=== PATIENT | male | born 1945 | race Caucasian/White ===

== ENCOUNTER → 2020-07-10 07:45 | Outpatient (CLI) | payer MEDICARE, OTHER, SELFPAY ==
[2020-06-27 10:44] VITALS: BMI 24.5
--- NOTE | 2020-07-10 07:48 | ECHOD_ITS ---
Reason For Study: MURMUR Procedure This was a 2D Doppler, Color Flow transthoracic echocardiogram. The exam was of adequate technical quality. Exam performed in department. Left Ventricle Normal LV size. Left ventricular systolic function is normal. The estimated ejection fraction is 65 %. Diastolic function is indeterminate. No regional wall motion abnormalities noted. Right Ventricle Normal RV size. Normal systolic function. Atria Normal left atrium. Normal right atrium. No doppler evidence for ASD. Mitral Valve There is no mitral annular calcification. Normal mitral valve. Trivial mitral valve insufficiency. Tricuspid Valve Normal tricuspid valve. Trivial tricuspid valve insufficiency. Unable to estimate RV systolic pressure due to insufficient tricuspid regurgitant envelope. Aortic Valve Trisinus/trileaflet aortic valve. Mild diffuse aortic valve thickening. Mild focal aortic valve calcification. Moderate aortic stenosis. Trivial aortic valve insufficiency. Pulmonic Valve The pulmonic valve is not well visualized. Great Vessels Normal sized aortic root. Pericardium/Pleural No pericardial effusion. MMode/2D Measurements & Calculations LVIDd: 4.9 cm IVSd: 1.5 cm LVOT diam: 2.1 cm LVIDs: 3.2 cm LVPWd: 1.0 cm LVOT area: 3.4 cm2 RVDd: 3.4 cm FS: 34.5 % Ao root diam: 3.1 cm LAV(MOD-bp): 61.2 ml LA A4 area: 17.7 cm2 LAV(MOD-bp) Indexed: 34.6 ml/m2 LAV(MOD-sp2): 74.9 ml LAV(MOD-sp4): 46.9 ml LA dimension(2D): 4.0 cm RA A4 area: 13.6 cm2 Time Measurements MV dec time: 0.18 sec Doppler Measurements & Calculations MV E max nghia: 98.0 cm/sec Lat Peak E' Nghia: 7.9 cm/sec Med Peak E' Nghia: 7.7 cm/sec MV A max nghia: 106.3 cm/sec E/E' lat: 12.4 E/E' med: 12.8 MV E/A: 0.92 Ao V2 max: 339.9 cm/sec LV V1 max: 123.6 cm/sec SV(LVOT): 93.9 ml Ao max P.3 mmHg LV V1 max P.1 mmHg Ao V2 mean: 243.5 cm/sec LV V1 mean P.2 mmHg Ao mean P.2 mmHg LV V1 mean: 84.3 cm/sec Ao V2 VTI: 74.2 cm LV V1 VTI: 27.7 cm ADIEL(I,D): 1.3 cm2 ADIEL(V,D): 1.2 cm2 PA V2 max: 92.8 cm/sec Interpretation Summary Left ventricular systolic function is normal. The estimated ejection fraction is 65 %. Trivial mitral valve insufficiency. Trivial tricuspid valve insufficiency. Moderate aortic stenosis. Trivial aortic valve insufficiency. Unable to estimate RV systolic pressure due to insufficient tricuspid regurgitant envelope. Diastolic function is indeterminate. Ordering Physician: Issac Wyman Referring Physician: Steffen Triplett Performed By: Suasn Palmer RVT, RDCS and Student
== END ==
PROVIDERS: PCP Family Medicine; Visit Provider Internal Medicine Cardiovascular Disease
DX: I35.0 Nonrheumatic aortic (valve) stenosis (principal)
CPT/HCPCS: 93306

== ENCOUNTER → 2021-09-24 | Outpatient (CLI) | payer MEDICARE, OTHER, SELFPAY ==
--- NOTE | 2021-09-24 09:47 | ECHOD_ITS ---
Reason For Study: Murmur Procedure This was a 2D Doppler, Color Flow transthoracic echocardiogram. Exam performed in department. Left Ventricle Normal LV size. Left ventricular systolic function is normal. The estimated ejection fraction is 65 %. Diastolic function is indeterminate. No regional wall motion abnormalities noted. Right Ventricle Normal RV size. Normal systolic function. Atria Normal left atrium. Normal right atrium. No doppler evidence for ASD. Mitral Valve There is no mitral annular calcification. Normal mitral valve. Mild (1+) mitral valve insufficiency. Tricuspid Valve Normal tricuspid valve. Trivial tricuspid valve insufficiency. Unable to estimate RV systolic pressure due to insufficient tricuspid regurgitant envelope. Aortic Valve Trisinus/trileaflet aortic valve. Mild diffuse aortic valve thickening. Moderate diffuse aortic valve calcification. Moderate to severe aortic valve stenosis. Trivial aortic valve insufficiency. Pulmonic Valve The pulmonic valve is not well visualized. Trivial pulmonic valve insufficiency. Great Vessels Normal sized aortic root. Pericardium/Pleural No pericardial effusion. MMode/2D Measurements & Calculations LVIDd: 4.5 cm IVSd: 1.1 cm LVOT diam: 2.0 cm LVIDs: 2.7 cm LVPWd: 1.1 cm LVOT area: 3.2 cm2 RVDd: 3.4 cm FS: 40.0 % Ao root diam: 3.0 cm LAV(MOD-bp): 58.9 ml Aortic Valve Planimetry: 0.84 cm2 LA dimension: 3.9 cm LAV(MOD-bp) Indexed: 32.4 ml/m2 LAV(MOD-sp2): 53.4 ml LAV(MOD-sp4): 58.9 ml LA A4 area: 20.2 cm2 RA A4 area: 15.6 cm2 Time Measurements MV dec time: 0.22 sec Doppler Measurements & Calculations MV E max nghia: 79.3 cm/sec Lat Peak E' Nghia: 6.4 cm/sec Med Peak E' Nghia: 6.6 cm/sec MV A max nghia: 112.9 cm/sec E/E' lat: 12.4 E/E' med: 11.9 MV E/A: 0.70 MV V2 max: 112.6 cm/sec MV P1/2t max nghia: 94.5 cm/sec Ao V2 max: 352.1 cm/sec MV max P.1 mmHg MV P1/2t: 60.0 msec Ao max P.8 mmHg MV V2 mean: 58.5 cm/sec MV dec slope: 461.2 cm/sec2 Ao V2 mean: 254.7 cm/sec MV mean P.6 mmHg Ao mean P.2 mmHg MV V2 VTI: 30.5 cm MVA(P1/2t): 3.7 cm2 Ao V2 VTI: 80.7 cm MVA(VTI): 2.4 cm2 ADIEL(I,D): 0.90 cm2 ADIEL(V,D): 0.85 cm2 AI max nghia: 353.1 cm/sec LV V1 max: 92.6 cm/sec SV(LVOT): 72.3 ml AI max P.9 mmHg LV V1 max P.4 mmHg LV V1 mean P.0 mmHg AI dec slope: 149.3 cm/sec2 LV V1 mean: 67.2 cm/sec AI P1/2t: 692.5 msec LV V1 VTI: 22.5 cm PA V2 max: 103.0 cm/sec ECHO/Echo Complete Interpretation Summary Left ventricular systolic function is normal. The estimated ejection fraction is 65 %. Mild (1+) mitral valve insufficiency. Trivial tricuspid valve insufficiency. Moderate to severe aortic valve stenosis. Trivial aortic valve insufficiency. Trivial pulmonic valve insufficiency. Unable to estimate RV systolic pressure due to insufficient tricuspid regurgita nt envelope. Diastolic function is indeterminate. Ordering Physician: Hayde Thompson Referring Physician: Steffen Triplett Performed By: Jamir Kothari RCS
== END | disposition home or self-care (01) ==
LOC: CVS 09:47
PROVIDERS: PCP Family Medicine; Referring Provider Physician Assistant Medical; Visit Provider Physician Assistant Medical
DX: I35.0 Nonrheumatic aortic (valve) stenosis (principal)
CPT/HCPCS: 93306

== ENCOUNTER 2021-10-29 08:19 | Day surgery (SDC) | payer MEDICARE, OTHER, SELFPAY ==
--- NOTE | 2021-10-23 14:41 | RAD_ITS ---
STUDY: XR Chest 2 Views 10/23/2021 2:47 PM REASON FOR EXAM: Male, 76 years old. CHEST PAIN pre-procedure COMPARISON: None TECHNIQUE: XR Chest 2 Views FINDINGS: There is no demonstrated pleural abnormality. Normal heart size. Normal mediastinum. Normal justa. Prominent appearing increased interstitial lung markings. Normal visualized pulmonary arteries. There is atherosclerotic calcification of the aortic arch with tortuosity. There are diffuse degenerative changes of the visualized thoracic spine. There is degenerative osteoarthritis of the bilateral shoulders. There is no demonstrated abnormality of the visualized soft tissue structures of the upper abdomen. RAD/Chest PA and Lateral IMPRESSION: There are no acute findings. Electronically Signed: Ar Sultana MD at 16:55 EDT ,
[2021-10-23 15:22] LABS: Absolute Lymphocyte Count 1.99 X10^3/uL (0.83-4.51); Absolute Neutrophil Count 5.9 X10^3/uL (2.0-7.7); Basophil# 0.04 X10^3/uL; Basophil% 0.5 % (0-1); Eosinophils% 1.2 % (0-5); Hematocrit 41.9 % (40-54); Hemoglobin 14.1 g/dL (13.0-16.5); Lymphocyte # 1.99 X10^3/ul (0.83-4.51); Mean Corp Hgb Conc 33.7 g/dL (32-36); Mean Corpuscular Hgb 30.2 pg (27.0-32.0); Mean Corpuscular Volume 89.7 fL (80-94); Mean Platelet Vol. 9.5 fl (6.2-12.0); Monocyte# 0.63 X10^3/uL; Monocyte% 7.3 % (0-10); NRBC Flagged by Analyzer 0 % (0-5); Neutrophil # 5.85 X10^3/uL (2.7-7.7); Neutrophil % 67.7 % (47-70); Platelet Count 242 K/mm3 (150-450); RBC Distribution Width CV 13.2 % (11.6-14.6); RBC Distribution Width SD 42.9 fl (35.1-43.9); Red Blood Count 4.67 M/mm3 (4.6-6.2); White Blood Count 8.6 K/mm3 (4.4-11.0)
[2021-10-23 15:38] LABS: International Normalized Ratio 1.1; Prothrombin Time (Protime)PT. 13.5 SECONDS (11.7-14.9)
[2021-10-23 15:39] LABS: Partial Thromboplast Time 28.3 Seconds (24.1-36.2)
[2021-10-23 15:51] LABS: Anion Gap 9 (5-15); BUN 19 mg/dL (7-18); BUN/Creat Ratio 22.5 RATIO (10-20); Calcium,Total 9.8 mg/dL (8.5-10.1); Chloride 101 mmol/L (98-107); Creatinine, Serum 0.84 mg/dL (0.70-1.30); EST Glomerular Filtration Rate 94 mL/min (>60); Est Glom Filt Rate - Afr Amer 114 mL/min (>60); Glucose 158 mg/dL (74-106); Potassium 3.4 mmol/L (3.5-5.1); Sodium Level 138 mmol/L (136-145)
[2021-10-28 07:48] VITALS: BMI 26.4
--- NOTE | 2021-10-28 18:19 | HP.PCM_ITS ---
History and Physical Date of Admission: 10/29/21 [facility] [address], [place] [phone] OFFICE VISITDate of Service: 10/23/21 MR#:[id number]:[id number]: JAIMEE BRIAN [facility] #:[id number]:[id number] Provider: LESLIE Hebert/Sex: 76/M [facility] HPI History of Present Illness Surgical H&P: Yes Details: Jaimee Brian is a 76-year-old gentleman that presents here today for An updated history and physical for an upcoming heart catheterization to further evaluate his worsening aortic stenosis. He has a history of aortic stenosis, hypertension and hyperlipidemia. Patient recently underwent an echocardiogram which demonstrated worsening aortic stenosis. It is now severe. Pt notes that over the last month he noted that he has had chest tightness when he is mowing his yard and taking walks. He did not have these symptoms when I had seen him in May. He notes that sometimes he has tightening at work in his chest, this is newer over the last few weeks. This resolves in 10-15 minutes. It is a 2-5/10. notes that she was concerned about his tightness a few weeks ago with a walk. He does occasionally have lightheadedness- this is newer. He notes that he is more easily SOB. He does not have any palpitations that he is aware of. Intake Vital Signs 10/23/21 13:31 Height 5 ft 6 in Weight: 164 lb BMI 26.4 BP 133/74 H Blood Pressure Location Lt brachial Position Sitting Respiration 20 H Pulse 61 Pulse Source Monitor Pulse Oximetry (%) 97 Intake Visit Reasons: UPDATE H&P PFM CATH 10/29 Housekeeping Aid Required: No Is patient in pain?: No Allergies adhesive tape Allergy (Verified 05/27/21 15:30) Rash aspirin Adverse Reaction (Severe, Verified 05/27/21 15:30) Nose bleeds Medications omega-3 fatty acids-fish oil 1 ea PO QHS 02/25/17 [History Confirmed 10/23/21] coenzyme Q10 100 mg capsule 100 mg PO DAILY 05/04/19 [History Confirmed 10/23/21] hydrochlorothiazide 12.5 mg tablet 12.5 mg PO DAILY 05/04/19 [History Confirmed 10/23/21] cholecalciferol (vitamin D3) 25 mcg (1,000 unit) capsule 25 mcg PO DAILY 06/27/20 [History Confirmed 10/23/21] insulin detemir U-100 100 unit/mL (3 mL) subcutaneous pen 13 unit SC QHS ml 06/27/20 [History Confirmed 10/23/21] ezetimibe 10 mg tablet 10 mg PO DAILY 01/22/21 [History Confirmed 10/23/21] atorvastatin 80 mg tablet 80 mg PO DAILY 10/23/21 [History Confirmed 10/23/21] metformin 500 mg tablet 500 mg PO BID tab 10/23/21 [History Confirmed 10/23/21] [facility] Medical History Essential hypertension Fatty tumor GERD (gastroesophageal reflux disease) HSV-1 (herpes simplex virus 1) infection Mixed hyperlipidemia Nonrheumatic aortic (valve) stenosis Type 2 diabetes mellitus Surgical History History of inguinal hernia repair Family History Mother Myocardial infarction, Onset Age: 48 Father CVA (cerebral vascular accident) Brother CAD (coronary artery disease) History of coronary artery bypass surgery Brother CAD (coronary artery disease) History of coronary artery bypass surgery Social History Smoking Status: Never smoker alcohol intake: current details: occasional substance use type: does not use caffeine: Yes Type: coffee Number of servings: 1 and tea Number of servings: 1 ROS Const Const: Positive for fatigue; Negative for weakness, headache(s), frequent falls, excessive sweating, weight gain or weight loss Eyes Eyes: Negative for blind spots, loss of peripheral vision, transient loss of vision, blurry vision, change in vision or double vision ENT ENT: Negative for headache(s), dizziness, tinnitus, Nosebleed/epistaxis or balance problems Cardio Chest Pain: Yes Palpitations: No Edema: None Muscle aches with walking: None Resp Respiratory: Positive for SOB with activity; Negative for SOB at rest, SOB orthopnea\SOB lying down or Cough GI GI: Negative nausea, vomiting, heartburn, bloating, vomiting blood/hematemesis, bright, red blood in stools or black,tarry stools : Negative for hematuria Musc Musc: Negative for muscle aches/ myalgia, muscle weakness, joint pain or balance problems Skin Skin: Negative rash or wounds Neuro Neuro: Negative for dizziness, lightheadedness, near syncope, syncope, orthostatic symptoms, frequent falls, headache(s), weakness, confusion, memory loss, restless legs, blurry vision or double vision Jeremías Hematologic/Lymphatic: Negative for easy bleeding or easy bruising Endo Endo: Positive for fatigue; Negative for cold intolerance, heat intolerance or excessive sweating Psych Psych: Negative for anxiety or depression Allergy Allergy/Immunology: Negative for rash Cardiology Exam Const Appearance: cooperative, healthy appearing, comfortable, no acute distress and well developed Orientation: alert, awake and oriented x3 Head Head: normal to inspection Ears: hearing grossly normal bilaterally Nose: external nose normal Face and Sinus: face symmetric Mouth: oral mucosae normal, lip normal and moist mucous membranes Eyes General: appearance normal, both eyes and all related structures Eyelids: eyelids normal Conjunctivae: conjunctivae normal Pupils: PERRL EOM: EOM intact bilaterally Neck Neck: normal visual inspection and trachea midline; Negative no JVD Carotids: Negative bruit Chest Chest inspection: normal inspection of the chest Auscultation: Bilateral: Clear to Auscultation Cardio Palpation: normal PMI Rate: regular rate Rhythm: regular rhythm Heart sounds: S1 normal, S2 normal and murmur; Negative rub or gallop Murmur: Grade 3/6, harsh, mid systolic and radiates to carotids GI GI: soft, no hepatosplenomegaly and bowel sounds present Neuro General: patient alert, patient awake, patient oriented x3 and CN's II-XI intact bilaterally Extremities Pulses: Normal: Right Posterior Tibial Pulse, Left Posterior Tibial Pulse, Right Radial Pulse and Left Radial Pulse Lower Extremity Edema: None: Bilateral Psych Psychological: normal affect Supplemental Info Supplemental Information Echocardiogram from 10/21/2018: Conclusion: ?Exam indication: Routine surveillance of moderate or severe valvular stenosis (greater than 1 year) ?The left ventricle is normal in size. Systolic function is normal. EF equals 67 ?5% (2D 4?CH.) Grade 1 left ventricular diastolic dysfunction. ?The right ventricle is normal in size. Right ventricular systolic function is normal. ?Tricuspid aortic valve. There is moderate aortic valve stenosis caused by calcified valve. ADIEL area is 1.16 cm? (0.64 cm?/m?) by continuity, VTI. The peak gradient is 37 mmHg, the mean gradient is 21 mmHg and the dimensionless valve index is 0.42. Prior aortic valve gradients 37/17 mmHg DI 49. ?Exam was compared with prior CT echocardiographic exam performed on 10/16/2017. Echocardiogram 06/2020: Left ventricular systolic function is normal. The estimated ejection fraction is 65 %. Trivial mitral valve insufficiency. Trivial tricuspid valve insufficiency. Moderate aortic stenosis. Trivial aortic valve insufficiency. Unable to estimate RV systolic pressure due to insufficient tricuspid regurgitant envelope. Diastolic function is indeterminate. Echocardiogram 09/2021: Left ventricular systolic function is normal. The estimated ejection fraction is 65 %. Mild (1+) mitral valve insufficiency. Trivial tricuspid valve insufficiency. Moderate to severe aortic valve stenosis. Trivial aortic valve insufficiency. Trivial pulmonic valve insufficiency. Unable to estimate RV systolic pressure due to insufficient tricuspid regurgitant envelope. Diastolic function is indeterminate. Labs: LDL Cholesterol 138 mg/dL (0-130) H HDL Cholesterol 39 mg/dL (40-) L Triglycerides 116 mg/dL (0-199) VLDL Cholesterol 23 mg/dL (5-40) Diagnostics: Electrocardiogram Echocardiogram Pulmonary: No Data to Display Assessment and Plan Assessment and Plan (1) Chest pain: Status: Acute Orders: Orders: 12 Lead EKG performed by BMS Today Basic Metabolic Profile (BMP) Today Partial Thromboplast Time Today Prothrombin Time w/INR Today CBC W/Diff, Automated Today Chest PA and Lateral Today Plan - Hayde NELSON PA: Patient now does have chest discomfort. This could be concerning for could also be due to his worsening aortic stenosis. Would like to proceed with a diagnostic heart catheterization to further assess. Patient is agreeable with this. This will be done with Dr. Wyman (2) Nonrheumatic aortic (valve) stenosis: Status: Chronic Orders: Orders: Basic Metabolic Profile (BMP) Today Partial Thromboplast Time Today Prothrombin Time w/INR Today CBC W/Diff, Automated Today Chest PA and Lateral Today Plan - Hayde NELSON PA: Echocardiogram demonstrated worsening aortic valve stenosis. Patient now does appear symptomatic. Would like to obtain a diagnostic heart catheterization to further assess this will allow us to evaluate if his valve is significant enough to be referred for CT surgery. (3) Essential hypertension: Status: Chronic Orders: Orders: 12 Lead EKG performed by BMS Today CBC W/Diff, Automated Today Plan - Hayde NELSON PA: Controlled will not make any adjustments. (4) Mixed hyperlipidemia: Status: Chronic Plan - Hayde NELSON PA: This is managed by his primary care doctor. He will continue with Zetia. Recent lipid profile demonstrates total cholesterol 128, HDL 47, LDL 74. Plan Details Follow Up: 10/23/21 (3 months MMM- cancel appt 11/01 with PFM) Coding Level of Care Code Off vis,est,level 4 Diagnoses Chest pain R07.9 Nonrheumatic aortic (valve) stenosis I35.0 Essential hypertension I10 Mixed hyperlipidemia E78.2 Coding Level of Care Code Off vis,est,level 4 Diagnoses Chest pain R07.9 Nonrheumatic aortic (valve) stenosis I35.0 Essential hypertension I10 Mixed hyperlipidemia E78.2 10/23/21 1414<Electronically signed by Hayde NELSON>Date Hayde NELSON Cosigner Signature:Date (if applicable) CC: Dr. Steffen Triplett MD ~ Assessment & Plan Addt'l Comments I have re-examined the patient. There are no clinical changes since date of exam
[2021-10-29 10:36] LABS: Blood Gas Specimen Type VEN; VBG BASE EXCESS 3 mmol/L (-1.0-3.5); VBG Bicarbonate 27 mmol/L (22-26); VBG PO2 51 mmHg (25-40); VBG SO2 87 % (50-70); VBG TCO2 28 mmol/L (23-33); VBG pH 7.46 (7.32-7.42)
[2021-10-29 10:41] LABS: Blood Gas Specimen Type VEN; VBG BASE EXCESS 2 mmol/L (-1.0-3.5); VBG Bicarbonate 26 mmol/L (22-26); VBG PO2 40 mmHg (25-40); VBG SO2 75 % (50-70); VBG TCO2 28 mmol/L (23-33); VBG pCO2 41.9 mmHg (41-51); VBG pH 7.41 (7.32-7.42)
[2021-10-29 10:46] LABS: Base Excess 1 mmol/L (-2 to +2); Bicarbonate 25.8 mmol/L (22-26); Blood Gas Specimen Type ART; PO2 63 mmHG (75-100); SO2 92 % (95-99); Total Carbon Dioxide 27 mmol/L; pCO2 39.1 mmHg (35-45); pH 7.43 (7.35-7.45)
[2021-10-29 10:50] LABS: Blood Gas Specimen Type VEN; VBG BASE EXCESS 2 mmol/L (-1.0-3.5); VBG Bicarbonate 27 mmol/L (22-26); VBG PO2 40 mmHg (25-40); VBG SO2 75 % (50-70); VBG TCO2 28 mmol/L (23-33); VBG pH 7.41 (7.32-7.42)
--- NOTE | 2021-10-29 12:05 | CL.D_ITS ---
Patient Name: DORIS CARL Study Date: 10/29/2021 Performing: Issac Wyman MD Ht: 66.14 inches 168 cm : 1945 Wt: 163.14 lbs 74 kg Age: 76 Gender: male BSA: 1.84 PROCEDURE(S) PERFORMED DC05-(37852)RHC/LHC/COR/LV CLINICAL PROFILE AND INDICATIONS Indications: Worsening Angina, Valvular Disease, Other, Pre-Operative Evaluation Heart Failure: None Stress/Imaging Stress/Image Study Performed: No Angina Classification Anginal Classification w/in 2 Weeks: Anginal Equivalent Dyspnea CAD Presentations: Other: worsening angina / dyspnea on exertion CONCLUSIONS Right heart pressures - mildly elevated RVSP The patient has pulmonary hypertension which is mild. (mild elevation of the PASP) Intracardiac shunting: None Normal Left Ventricular End Diastolic Pressure Normal LV size, wall motion,and systolic function LVEF: by LV gram 60 % [place] Multivessel CAD Aortic Valve Calcification- Moderate Aortic Valve Stenosis- Moderately severe RECOMMENDATIONS Risk factor modification Medical therapy Surgery consult for coronary revascularization Surgery consult for valvular disease DESCRIPTION OF PROCEDURE The patient arrived to the procedure lab. The risks and benefits of the procedure as well as a full d escription of our services here and current unavailability of surgical backup were fully explained to the patient and/or their significant other prior to the catheterization. The Timeout was completed, verifying the correct patient and procedure. The patient's procedural site was prepped and draped in the usual fashion. Local anesthetic was given subcutaneously to right radial region with Lidocaine 2% . Using a modified Seldinger technique, arterial access was obtained via the right radial artery, a 6 Fr sheath was inserted. Venous access was obtained via the right brachiocephalic vein, a 7Fr sheath w as inserted. A 7Fr thermal dilution catheter was inserted and right heart pressures were recorded, it was then advanced to PA position for cardiac outputs. Thermal dilution cardiac outputs were then rec orded. O2 saturations were then obtained. Right Ventriculography performed. The Thermal dilution catheter was then removed. Left Coronary Artery selective angiography was performed in multi ple views using a 5 Fr. 4.0 Hubbard catheter. Right Coronary Artery selective angiography was then perf ormed in multiple views using a 5 Fr. JR 4 catheter.The arterial sheath was pulled and a TR Band was applied for hemostasis w/ 10ml air. The venous sheath was then pulled and manual compression applied until hemostasis achieved CORONARY ANGIOGRAPHY DOMINANCE: Left Dominant LEFT HEART ASSESSMENT Left Ventricular Ejection Fraction: by LV Gram 60 % Normal LV wall motion Normal Left Ventricular End Diastolic Pressure LVEDP: 12 mmHg RIGHT HEART ASSESSMENT Thermal CO: 4.37 Thermal CI: 2.37 Namita CO: 25.52 Namita CI: 13.87 PW: 02/28 6 PA: 32/6 16 RV: 30/-1 8 RA: 11/24 2 PVR: 183 SVR: 1574 Aortic Valve Area: 0.89 Aortic Valve Index: 0.48 Aortic Valve Mean Gradient: 33.4 Mitral Valve Area: >3.50 Mitral Valve index: 1.9 Mitral Valve Mean Gradient: 11.8 Right Heart pressures - elevated (mild elevation of the RVSP) Pulmonary Hypertension Mild (mild elevation of the PASP) Intracardiac shunting: None LEFT MAIN: Moderate calcification, Mild luminal irregularities LEFT ANTERIOR DESCENDING ARTERY: PROX LAD: Moderate calcification, diffuse; eccentric; 25 % Stenosis MID LAD: diffuse; irregular; hazy; 85 % Stenosis CIRCUMFLEX ARTERY: MID CIRC: diffuse; irregular; hazy; 85 % Stenosis RIGHT CORONARY ARTERY: PROX RCA: small: non dominant: 50-75 % Stenosis VALVE FINDINGS: Aortic Valve Calcification - moderate Aortic Valve Stenosis - moderately severe AORTIC ROOT: Angiographically normal COMPLICATIONS No Complications PROCEDURE MEDICATIONS Versed 1 mg IV Fentanyl 50 mcg IV Oxygen: 2 L/min via nasal cannula Heparin given IA 10/29/2021 10:38:12 Verapamil 2.5mg, Ntg 100mcgs, 3000 units of Heparin given IA 10/29/2021 10:38:12 SUMMARY OF HEMODYNAMIC DATA Time AIR REST ECG 08:36:33 RA 11/24 (2) SV 10:32:33 RV 30/-1, 8 10:32:51 PA 32/6 (16) PA 10:33:09 PW 02/28 (6) PV 10:33:21 LV 165/-14, 10 10:42:37 PW 11/26 (5) 10:42:37 LV 163/-12, 9 10:42:44 PW 11/26 (5) 10:42:44 LV 162/-8, 18 10:44:09 PW (14) 10:44:09 LV 163/-9, 16 10:44:16 PW 19/12 (6) 10:44:16 LV 157/-9, 13 10:44:55 PA 24/9 (15) 10:44:55 LV 160/-9, 12 10:45:02 PA 23/8 (15) 10:45:02 LV 160/-9, 15 10:45:31 RV 31/0, 10 10:45:31 LV 158/-8, 13 10:45:37 RV 30/0, 10 10:45:37 LV 161/-8, 15 10:45:56 RA 8/4 (3) 10:45:56 LV 162/-8, 13 10:46:03 RA 8/4 (2) 10:46:03 LV 160/-9, 15 10:46:16 LV 161/-8, 15 10:46:23 LVp 163/-8, 15 10:46:35 AOp 118/58 (84) 10:46:40 AO 121/64 (88) SA 10:46:55 Valve Area (c P-P/ms Time AIR REST Mitral 3.50 11.8 mn/120 ms 10:42:44 Aortic 0.89 33.4 mn/306 ms45.0 pk/306 ms 10:46:35 Type SV CO (l/m) CI (l/m/ HR Time AIR REST Thermal 56.80 4.37 2.37 77 08:36:33 Namita 331.40 25.52 13.87 77 08:36:33 Label % O2 Pres/Loc Time AIR REST PA 75 PA 10:39:04 SVC 75 10:49:09 IVC 87 SV 10:49:29 AO 92 PV 10:49:41 Signed By Issac Wyman MD On 10/29/2021 12:04:40 Issac Wyman MD
[2021-10-29 12:15] LABS: Bedside Glucose 95 mg/dL (74-106)
== END 2021-10-29 14:15 | disposition home or self-care (01) ==
LOC: CLSP 08:20
PROVIDERS: Physician Assistant Medical; PCP Family Medicine; Referring Provider Internal Medicine Cardiovascular Disease; Visit Provider Internal Medicine Cardiovascular Disease
DX: I25.10 Atherosclerotic heart disease of native coronary artery without angina pectoris (principal); I27.20 Pulmonary hypertension, unspecified; E11.9 Type 2 diabetes mellitus without complications; Z79.4 Long term (current) use of insulin; I10 Essential (primary) hypertension; K21.9 Gastro-esophageal reflux disease without esophagitis; E78.2 Mixed hyperlipidemia; I35.0 Nonrheumatic aortic (valve) stenosis; Z79.899 Other long term (current) drug therapy; R07.89 Other chest pain
CPT/HCPCS: 36415; 71046; 80048; 82803; 82962; 84132; 85025; 85610; 85730; 93461; 99152; 99153; J7030; Q9967; C1751; C1769; C1894

== ENCOUNTER → 2021-10-31 | Outpatient (CLI) | payer MEDICARE, OTHER, SELFPAY ==
[2021-10-31 12:20] LABS: Anion Gap 5 (5-15); BUN 15 mg/dL (7-18); BUN/Creat Ratio 16.9 RATIO (10-20); Calcium,Total 9.3 mg/dL (8.5-10.1); Chloride 101 mmol/L (98-107); Creatinine, Serum 0.89 mg/dL (0.70-1.30); EST Glomerular Filtration Rate 89 mL/min (>60); Est Glom Filt Rate - Afr Amer 107 mL/min (>60); Glucose 167 mg/dL (74-106); Sodium Level 137 mmol/L (136-145)
== END | disposition home or self-care (01) ==
LOC: LAB 10:49
PROVIDERS: PCP Family Medicine; Referring Provider Internal Medicine Cardiovascular Disease; Visit Provider Internal Medicine Cardiovascular Disease
DX: I25.10 Atherosclerotic heart disease of native coronary artery without angina pectoris (principal); E78.2 Mixed hyperlipidemia; I10 Essential (primary) hypertension; I35.0 Nonrheumatic aortic (valve) stenosis
CPT/HCPCS: 36415; 80048

== ENCOUNTER → 2022-01-10 | Outpatient (CLI) | payer MEDICARE, OTHER, SELFPAY ==
[2022-01-10 11:59] LABS: Anion Gap 5 (5-15); BUN 18 mg/dL (7-18); BUN/Creat Ratio 21.5 RATIO (10-20); Calcium,Total 9.5 mg/dL (8.5-10.1); Chloride 102 mmol/L (98-107); Creatinine, Serum 0.84 mg/dL (0.70-1.30); EST Glomerular Filtration Rate 95 mL/min (>60); Est Glom Filt Rate - Afr Amer 115 mL/min (>60); Glucose 154 mg/dL (74-106); Potassium 3.9 mmol/L (3.5-5.1); Sodium Level 137 mmol/L (136-145)
== END | disposition home or self-care (01) ==
LOC: LAB 10:36
PROVIDERS: PCP Family Medicine; Referring Provider Internal Medicine Cardiovascular Disease; Visit Provider Internal Medicine Cardiovascular Disease
DX: I25.10 Atherosclerotic heart disease of native coronary artery without angina pectoris (principal); Z95.3 Presence of xenogenic heart valve; Z95.1 Presence of aortocoronary bypass graft; E78.2 Mixed hyperlipidemia; I10 Essential (primary) hypertension
CPT/HCPCS: 36415; 80048

== ENCOUNTER → 2022-01-15 | Outpatient (CLI) | payer MEDICARE, OTHER, SELFPAY ==
--- NOTE | 2022-01-15 08:03 | CR.HP_ITS ---
CR - History & Physical - General Arrival date:: 01/15/22 Arrival time:: 08:03 Date of Referral:: 01/10/22 Date of CR Evaluation:: 01/15/22 Referring Physician: Dr. Issac Wyman Primary Diagnosis: S/P CABG - History of Present Cardiac Event Onset Date: Enter Onset Date of cardiac illnesses in Comment field below Coronary Artery Bypass Graft:: Yes - 01/10/2022 - Sleep Disorder Evaluation Hx of Sleep Apnea: No Do you snore loudly (louder than talking or can be heard through closed doors)?: No Do you often feel tired/ fatigued/ sleepy during daytime?: No Has anyone observed you stop breathing during sleep?: No History of Hypertension (for STOP score): Yes STOP Results: Negative - Medications Home Medications: Ambulatory Orders Medication Instructions Recorded coenzyme Q10 100 mg capsule 100 mg PO DAILY 05/04/19 cholecalciferol (vitamin D3) 25 25 mcg PO DAILY 06/27/20 mcg (1,000 unit) capsule ezetimibe 10 mg tablet (Zetia) 10 mg PO DAILY 01/22/21 atorvastatin 80 mg tablet 80 mg PO DAILY 10/23/21 metoprolol tartrate 25 mg tablet 12.5 mg PO BID #90 tabs 10/29/21 acetaminophen 325 mg tablet 650 mg PO Q6H PRN 12/17/21 insulin degludec 100 unit/mL (3 14 unit subcut DAILY 12/17/21 mL) subcutaneous pen (Tresiba FlexTouch U-100 insulin) melatonin 3 mg tablet 3 mg PO HS PRN 12/17/21 metformin 500 mg tablet,extended 500 mg PO DAILY 12/17/21 release 24 hr multivitamin 1 tab PO DAILY 12/17/21 polyethylene glycol 3350 17 gram 17 g PO BID PRN constipation 12/17/21 oral powder packet (Miralax) tamsulosin 0.4 mg capsule 0.4 mg PO DAILY 12/17/21 aspirin 325 mg tablet 81 mg PO DAILY 01/10/22 hydrochlorothiazide 12.5 mg capsule 12.5 mg PO DAILY 01/10/22 - Allergies Allergies/Adverse Reactions: Allergies adhesive tape Allergy (Verified 01/10/22 09:48) Rash aspirin Adverse Reaction (Severe, Verified 01/10/22 09:48) Nose bleeds Advanced Directives - Advanced Directives Power of Dental Office Receptionist: Yes Living Will: Yes Advance Directives Information Provided: Yes Advance Directives on File: No DNR Order?:: No Past Medical History - Covid-19 Screening Fever: No Unexplained muscle aches: No Current respiratory symptoms: No Upper respiratory infections symptoms: No Gastro-intestinal symptoms: No Uhe-Uhsr-Hjqkou symptoms: No Has tested positive for COVID-19 in last 30 days: No Had contact w/person w/symptoms or Covid-19 (+) last 14 days: No Has High Risk Exposures ID'd by Health dept/Inf Control team: No 65 years or older:: Yes Lives in Assisted Living facility:: No Has a chronic lung disease or moderate to severe asthma:: No Has a serious heart condition:: Yes Immunocompromised:: No Severely obese (Body Mass Index of 40 or higher):: No Diabetic:: Yes Has chronic kidney disease undergoing dialysis:: No Has liver disease:: No - Past Medical Illness Medical History: Past Medical History (Last Updated 10/29/21 @ 13:05 by Hayde Means) Atherosclerotic heart disease of [place] coronary artery without angina pectoris I25.10 Essential hypertension 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 [facility] Trifecta valve Dr. Montiel @ [facility] 12/09/21 History of coronary artery bypass surgery Onset Date: ~12/09/21 Z95.1 CABG x2- PASTRANA - LAD, SVG - CX; Lt atrial appendage ligation; aortic root enlargement with a Bovine pericardial patch Dr. Montiel @ [facility] 12/09 22 History of inguinal hernia repair Z98.890, Z87.19 - Family History Summary Family History: Family History (Last Reviewed 10/23/21 @ 13:58 by Hayde Thompson PA, PA) Mother Myocardial infarction, Onset Age: 48 Father CVA (cerebral vascular accident) Brother CAD (coronary artery disease) History of coronary artery bypass surgery Brother CAD (coronary artery disease) History of coronary artery bypass surgery Social History - Smoking History Smoking Status: Never smoker - Alcohol Use Alcohol Usage: Yes - occasional - Substance Abuse Hx Substance Use: No - Occupation Occupation (List type of work in comments):: Retired - Hobbies, Recreation, Social Activities Hobbies: Other - hunting Recreational Activities: I am able to engage in all my recreational activities Social Environment - Status Marital Status: - Current Living Arrangements Living Environment:: Spouse - Children How many children do you have?: 3 Do any of your children live nearby?: Yes - Safety Do you feel safe in your surroundings?: Yes - Assistance Do you need any assistance at home?: no Review of Systems - Review of Systems Hints: Right click = Denies ([place]). Left click = Reports ([place]) Review of Present Symptoms: Reports: Appetite - Normal, Sleep - Normal. Denies: Shortness of Breath at Rest, Shortness of Breath with Exertion, PVD, Operative Discomfort, Angina, Wound Healing, Dizziness/Lightheadedness, Fatigue, Heart Arrhythmia/Irregularities, Appetite - Special Diet, Sexual Changes - Pain Is Patient Pain Free?: Yes Risk Factor Assessment - Vital Signs Pulse Ox: 97 Blood Pressure: 128/60 - Pulse Pulse Rate: 68 Pulse Rhythm: Regular - Diabetes Diabetic History: Type II, Medication Dependent, Insulin Dependent - Obesity Height: 5 ft 6 in Weight:: 74.843 kg Weight in Pounds: 165.0 lbs Body Mass Index (BMI): 26.6 Nutritional Referral for Obesity: Yes - Physical Inactivity Physical Inactivity: Reg Exercise 30 min/day - Risk Stratification Risk Guidelines: Lowest Risk: Risk Factor for Smoking, Risk Factor for Obesity, Moderate Risk: Risk Factor for Dyslipidemia, Risk Factor for Sedentary Lifestyle, Risk Factor for Depression, Highest Risk: Risk Factor for Diabetes, Risk Factor for Hypertension - Family History Family History: Family History (Last Reviewed 10/23/21 @ 13:58 by Hayde Thompson PA, PA) Mother Myocardial infarction, Onset Age: 48 Father CVA (cerebral vascular accident) Brother CAD (coronary artery disease) History of coronary artery bypass surgery Brother CAD (coronary artery disease) History of coronary artery bypass surgery Motivation - Motivation to Participate On a scale of 1 to 10, how prepared are you to commit to attending program?: 5 What do you see as barriers to successfully being able to complete the program?: nothing What do you see as the benefits of succesfully completing the program? In other words, what do you hope to get out of participating in the program?: improved energy Are there issues you are dealing with that will interfere with completing the program?: no Do you have a spouse or signficant other, family or friends who will help support you to complete the program?: yes
[2022-01-15 08:58] VITALS: BP 128/60; PULSE 68; O2SAT 97; BMI 26.6
--- NOTE | 2022-01-15 08:58 | PCM.CR.ITP ---
Diagnosis - General Information Admitting Diagnosis: CABG Personal Learning Style:: Audio/Visual Barriers to Learning: Cognitive/Learning Impairment, Cultural/Spiritual, Decreased Motivation, Emotional/Anxiety, Hearing Impairment, Language, Low Literacy, Mental Status, No Barriers, Physical Condition/Sensory Deficit, Vision Impairment Stage of change r/t lifestyle modifications:: Contemplation Gave educational material for:: Treating Heart Disease, Emotions & Heart Disease, Stress Management & Relaxation, Sleep Disorders & Heart Disease, How The Heart Works, What it means to have Heart Disease, How Coronary Artery Disease is Diagnosed, Heart Procedures, What Heart Medications Do, Risk Factors & Modifications, Living an Active Life, Nutrition - Education/Goals Cardiac Rehabilitation Goals: 1. Maintain the individual as the primary focus of care. 2. To improve the patient's quality of life. 3. Identification of cardiac risk factors and provide cardiac risk factor management. 4. Enhance the psychosocial status of the patient. 5. Reconditioning enough to allow the patient to resume customary activities. 6. Control symptoms of cardiac disease Personal Goals: Initial Assessment: Improve energy level, Get back to work, or to resume activities faster, Improve knowledge of cardiac disease, Improve muscle strength and endurance, Improve diet and eating habits (eat healthier), Control risk factors (learn risk factor modification) Scale for measuring improvement of personal goals: Enter appropriate number in Comments. 2 = Unchanged. 3 = Slightly Better. 4 = Moderate Improvement. 5 = Met my Goal - Diagnosis & Disease Process Outcomes/Goals: Pt IDs own risk factors & lifestyle modifications by Session 10, Verbalizes symptoms of angina & response by session 3., Pt independently manages, Other Additional Outcomes/Goals: Plan/Interventions: Assist Pt to ID & engage in lifestyle modification to reduce CVD risk, Instruct on individual risk factors, Review symptoms of angina & emergency actions, Review secondary diagnosis & identify educational needs., Other see comment 30 day Reassessments:: Not Met 30 day Reassessments:: Not Met 30 day Reassessments:: Not Met 30 day Reassessments:: Not Met Final Reassessments:: Not Met - Safety Referral to Physical Therapy: No Referral to [facility] Case Management: No Fall Risk Assessed:: Yes Assistive Devices:: None Exercise - Initial Assessment - Visit Date of Eval: 01/15/22 - initial eval Mets: Pre-: >3 METS for 30 minutes by discharge, >5 METS for 30 minutes by discharge, >7 METS for 30 minutes by discharge, Unable to meet goal due to: (see comment below) - Physician Prescribed Exercise Modalities: Treadmill, Airdyne, NuStep, SciFit, Lateral Power Transformer Repairer Frequency: 3x/week for 12 weeks [36 sessions] Intensity: 60-80% of age predicted maximum heart rate reserve Current METSs:: 3 Target Heart Rate:: 94-123 Resting Blood Pressure: 128/60 EKG Type: SR - Outcomes & Goals Goals:: Verbalizes understanding of THR, RPE & goal METS by session 6, Documents in home exercise log/reports 30 min aerobic 5 day/wk by DC, Demonstrates accurate pulse taking by DC, Other additional outcome/goals: see below - Intervention & Plan Exercise Program Goals: Instruct on personal THR & RPE, Instruct on MET level & personal MET goal, Show patient to take own pulse /validate performance until accurate, Instruct on home exercise, Other additional plan/int - Physical Activity Home Exercise Physical Activity - Home Exercise: Safe Exercise, Warm-up, Self-monitoring, Cool-Down, Home Exercise > 30 min Daily, Sitting Time <3 hours/daily - Outcomes & Goals Outcomes/Goals: Demonstrates correct Warm-up/exercise Cool-Down (S3) if = 2.5 METs, Verbalizes symptoms of exercise intolerance by Session 3 (S3), Demonstrate safe equipment use (S3) & follows exercise prescrition (6), Other: See below - Intervention & Plan Plan/Intervention: Instruct warm-up & cool-down if exercising at > 2 METs, Instruct on symptoms of exercise intolerance & actions to take, Instruct & monitor on saf, Assess intial functional capacity & safety risk, Other See below Nutrition - Initial Assessment - Program Goals Nutrition Program Goals: LDL <100 optimal. 100 - 129 Near optimal. 130 - 159 Borderline High. 160 - 189 High. Total Cholesterol <200 desirable. 200 - 239 Borderline High. >/= 240 High. HDL < 40 Low >/=60 High. Triglycerides <150 desirable. <199 optimal. VlDL 5 - 40. HgbA1C <7%. BMI <25 Patient has diagnosis of Hyperlipidemia (ICD E78)?: Yes - Visit Date of Assessment:: 01/15/22 - initial eval - Cholesterol/Lipids Determine presence & major risk factors that modify LDL goal: Hypertension or hypertensive medication, Low HDL cholesterol <40 mg/dL*, Family history of premature CHD in Male < 55 years: female <65 yearsFa, Age men > 45 years; women >/= 55 years Outcomes/Goals: Pt IDs own risk factors & lifestyle modifications by Session 10, Verbalizes symptoms of angina & response by session 3., Pt independently manages, Other Additional Outcomes/Goals: Intervention/Plan: Advocate for lipid panel cholesterol medication if applicable, Instruct on personal lipid levels & lipid goals/NCEP guidelines, Instruct on cholesterol, Other additional plan/int - Diabetes (Other Core Measures) Diabetes Type: 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 Insulin dependent injection/pump?: Yes Non-Insulin Dependent?: Yes Do you monitor your blood sugar at home?: Yes Referral to Diabetic Clinic:: Yes Outcomes/Goals:: Able to state symptoms of, Able to state, Able to state, Other additional Intervention/Plan:: Instruct on, Refer to, Instruct on, Other - Weight Mgt (Other Care) Height: 5 ft 6 in Weight:: 74.843 kg BMI: 26.6 Diagnosis Overweight/Obesity BMI> 30% ICD-10 E66: No Diagnosis High BMI/Morbid Obesity BMI> 35% ICD-10 Z68: No Outcomes/Goals: Pt sets, maintains & shows weight loss goal & trend during rehab, Other additional outcomes/goals Intervention/Plan: Instruct on ideal BMI & set weight loss goal w/patient, Assist pt to ID & incorporate diet changes for weight loss by S9, Refer to Structured Weight Loss program as appropriate, Encourage goal of using 250-300dcal per session for weight loss, Other additional plan/interventions - Healthy Eating Habits Will attend diet classes:: Yes Outcomes/Goals:: Consume diet rich in vegs,fruits,whole grain/high fiber,fish,lean meat, Limit sat/trans fats,cholesterol & added salts & sugars, Other additional outcome/goals: Intervention/Plan:: Assess current eating habits, Other Additional plan/interventions - Education Gave educational materials for:: Signs & symptoms of hypoglycemia, Signs & symptoms of hyperglycemia, Relate diabetes to coronary artery disease, Healthy eating Nutrition - 30-Day Assessment Nutrition - 60-Day Assessment Nutrition - 90-Day Assessment Nutrition - Final Assessment Core - Initial Assessment - Visit Date of Eval: 01/15/22 - initial eval - Medication Compliance Preventative Medication(s):: Aspirin, Statin/lipid, Beta shaggy H/O mental health issues: depression, anxiety, or addiction?: No Doesn?t believe in the benefits of treatment?: No Believes medications are unnecessary or harmful?: No Has a concern about medication side effects?: No Expresses concern over the cost of medications?: No Outcomes/Goals: Verbalizes medications,desired effect & common side effects @ DC, Pt self-reports following medication regimen, Keeps card in wallet w/medications listed by DC, Other additional outcome/goals: Interventions/plans: Instruct on medication effects & side effects, Review medication list w/patient every two weeks, Instruct importance of taking meds as ordered & assist problem solving, Other additional - Tobacco Use Tobacco Use: Non-smoker Do you use smokeless tobacco?: No - Hypertension Hypertension Diagnosis:: Hypertension ICD-10 I10 Resting Blood Pressure:: 128/60 [place] [employer] Hypertension Guidelines: [place] [employer] Hypertension Guidelines. Normal BP Less than 120/80. Elevated BP 120/80. Hypertension Stage 1: BP 130-139/80-89. Hypertesnion Stage 2: BP 140 or higher/90 or higher. Hypertension Crisis: BP higher than 180/120 Outcomes/Goals: Able to verbalize/achieve optimal blood pressure <130/80, Incorporates diet changes & exercise for blood pressure control by DC, Other additional outcomes/goals Interventions/plan: Instruct on optimal blood pressure, hypertension & medications, Instruct on effects of sodium, alcohol, stress, exercise &hypertension, Other additional plan/interventions - Tobacco Cessation Referral Smoking Cessation Referral:: No Individual Education/Counseling:: No Education Schedule Given:: Yes Core - 30-Day Assessment Core - 60-Day Assessment Core - 90 Day Assessment Core - Final Assessment Psychosocial - Initial Assess - VIsit Date of Eval: 01/15/22 - initial eval History of previous Mental disease:: No - Outcomes/Goals: See list Psychosocial Outcomes/Goals:: ID's personal stressors & 2 strategies to manage stress by discharge, Other Additional outcome/goals: - Intervention/Plan: See List Interventions/Plan:: Assess stressors,coping strategies & signs of derpression on admission, Instruct/assist pt to develop coping & personal stress Mgt strategies, Refer to Behavioral Health if appropriate, Refer to Physician if appropriate, Instruct patient to recognize signs & symptoms of depression, Instruct patient to recog, Other additional plan/intervention Psychosocial - 30-Day Assess Psychosocial - 60-Day Assess Psychosocial - 90-Day Assess Psychosocial - Final Assessmen Patient Health Questionnaire Initial Assessment 1. Little interest or pleasure in doing things: Not at all 2. Feeling down, depressed, or hopeless: Not at all 3. Trouble falling or staying asleep, or sleeping too much: Not at all 4. Feeling tired or having little energy: Several days 5. Poor appetite or overeating: Not at all 6. Feeling bad about yourself -- or that you are a failure or have let yourself or your family down: Not at all 7. Trouble concentrating on things, such as reading the newspaper or watching television: Not at all 8. Moving or speaking so slowly that other people could have noticed. Or the opposite - being so fidgety or restless that you have been moving around a lot more than usual: Not at all 9. Thoughts that you would be better off , or of hurting yourself in some way: Not at all How difficult have these problems made it for you to do your work, take care of things at home, or get along with other people?: Not difficult at all Total Score: 1 LINA-Q SV Test - Statements CAD is a disease of the arteries in the heart: False Examples of risk factors for heart disease: True Angina is chest pain or discomfort: True The benefits of resistance training include: True Eating more meat and dairy products: False Anti-platelet medications such as aspirin are important: True The only effective way to manage stress: False An exercise warm-up slowly increases heart rate: True Prepared, processed foods usually have high sodium: True Depression is common after a heart attack: True The statin medications lower cholesterol: True To control blood pressure, lower the amount of sodium: False If someone gets chest discomfort during walking: False Transfats are partially hydrogenated vegetable oils: True Sleep apnea that is not treated increases the risk: True To control cholesterol, one should become a vegetarian: False Someone knows if he/she is exercising at the right level: True Diabetes cannot be prevented with exercise & health eating: False Stress is a large risk for heart attack: True A diet that can help lower blood pressure is rich in: True - Total Score Total Correct Responses: 18 Self-Efficacy Initial Assessment We would like to know how confident you are in doing certain activities. Please select your confidence level for:: Select your confidence level for the following using the scale 1-10 where 1 is not at all confident and 10 is totally confident. Your score is the average of all 6 responses. Fatigue: How confident are you that you can keep the fatigue caused by your disease from interfering with the things you want to do? Select Number: 6 Physical Discomfort or Pain: How confident are you that you can keep the physical discomfort or pain of your disease from interfering with the things you want to do? Select Number: 7 Emotional Distress: How confident are you that you can keep the emotional distress caused by your disease from interfering with the things you want to do? Select Number: 7 Other Symptoms or Health Problems: How confident are you that you can keep other symptoms or health problems from interfering with the things you want to do? Select Number: 5 Different Tasks and Activities: How confident are you that you can do the different tasks and activities needed to manage your health condition so as to reduce your need to see a doctor? Select Number: 7 Medication: How confident are you that you can do things other than just taking medication to reduce how much your illness affects your everyday life? Select Number: 7 Total Score:: 6 Nutrition Survey - Nutrition Survey Initial Have you lost >10 lbs over the past 2 months without trying?: No Are you following a special diet at home for diabetes, low fat, or low salt?: Yes Are you interested in meeting with a dietitian for help understanding your diet?: Yes Do you eat less than 3 meals a day?: No Do you eat fatty meats (belcher, sausage, ribs, etc), fried foods, desserts, large amounts of salad dressings, margarine, butter, or cheese most days?: No Do you have food allergies? [Enter types in comment field]: No Do you eat in restaurants more than 3 times a week?: Yes Do you season food with salt, seasoning salt, or garlic salt?: Yes Do you used canned, boxed, frozen meals, or soups, seasoning packets?: No Total Score:: 4
[2022-01-15 09:10] VITALS: BP 128/60; BMI 26.6
== END | disposition home or self-care (01) ==
LOC: CR 07:57
PROVIDERS: PCP Family Medicine; Referring Provider Internal Medicine Cardiovascular Disease; Visit Provider Internal Medicine Cardiovascular Disease
DX: I25.10 Atherosclerotic heart disease of native coronary artery without angina pectoris (principal); E11.9 Type 2 diabetes mellitus without complications; Z79.4 Long term (current) use of insulin; K21.9 Gastro-esophageal reflux disease without esophagitis; E78.2 Mixed hyperlipidemia; I35.0 Nonrheumatic aortic (valve) stenosis; Z95.1 Presence of aortocoronary bypass graft; Z87.19 Personal history of other diseases of the digestive system; Z95.3 Presence of xenogenic heart valve; I10 Essential (primary) hypertension; Z79.899 Other long term (current) drug therapy; Z79.82 Long term (current) use of aspirin

== ENCOUNTER 2022-01-22 13:00 | Outpatient (RCR) | payer MEDICARE, OTHER, SELFPAY ==
[2022-01-15 09:10] VITALS: BMI 26.6
== END 2022-01-22 23:59 ==
LOC: CR 13:00
PROVIDERS: PCP Family Medicine; Referring Provider Internal Medicine Cardiovascular Disease; Visit Provider Internal Medicine Cardiovascular Disease
DX: I25.10 Atherosclerotic heart disease of native coronary artery without angina pectoris (principal); Z95.3 Presence of xenogenic heart valve; Z95.1 Presence of aortocoronary bypass graft; E78.2 Mixed hyperlipidemia; I10 Essential (primary) hypertension
CPT/HCPCS: 93798

== ENCOUNTER → 2022-01-24 | Outpatient (CLI) | payer MEDICARE, OTHER, SELFPAY ==
[2022-01-15 09:10] VITALS: BMI 26.6
--- NOTE | 2022-01-24 13:53 | ECHOD_ITS ---
Reason For Study: VALVE REPLACEMENT EVAL Procedure This was a 2D Doppler, Color Flow transthoracic echocardiogram. The exam was of adequate technical quality. Exam performed in department. Left Ventricle Normal LV size. Mid cavitary false tendon noted. Left ventricular systolic function is normal. The estimated ejection fraction is 70 %. Post operative septal motion. No evidence for diastolic dysfunction. No regional wall motion abnormalities noted. Right Ventricle Normal RV size. Normal systolic function. Atria Normal left atrium. Normal right atrium. No doppler evidence for ASD. Mitral Valve There is no mitral annular calcification. Normal mitral valve. Trivial mitral valve insufficiency. Tricuspid Valve Normal tricuspid valve. Trivial tricuspid valve insufficiency. Unable to estimate RV systolic pressure due to insufficient tricuspid regurgitant envelope. Aortic Valve Stable appearing bioprosthetic aortic valve apparatus. Pulmonic Valve The pulmonic valve is not well visualized. Trivial pulmonic valve insufficiency. Great Vessels Normal sized aortic root. Pericardium/Pleural No pericardial effusion. MMode/2D Measurements & Calculations LVIDd: 4.7 cm IVSd: 1.1 cm LVOT diam: 1.9 cm LVIDs: 2.8 cm LVPWd: 1.0 cm LVOT area: 2.7 cm2 RVDd: 4.2 cm FS: 40.3 % Ao root diam: 3.4 cm LAV(MOD-bp): 53.5 ml LVAd ap4: 26.1 cm2 LAV(MOD-bp) Indexed: 29.4 ml/m2 LVLd ap4: 8.1 cm LAV(MOD-sp2): 58.4 ml EDV(MOD-sp4): 69.0 ml LAV(MOD-sp4): 48.7 ml EDV(sp4-el): 71.1 ml LVAs ap4: 13.4 cm2 LVLs ap4: 6.6 cm ESV(MOD-sp4): 24.1 ml ESV(sp4-el): 22.9 ml EF(MOD-sp4): 65.1 % EF(sp4-el): 67.8 % SV(MOD-sp4): 45.0 ml SV(sp4-el): 48.2 ml LA A4 area: 17.7 cm2 LA dimension(2D): 4.6 cm RA A4 area: 15.7 cm2 Time Measurements MV dec time: 0.20 sec Doppler Measurements & Calculations MV E max nghia: 79.2 cm/sec Lat Peak E' Nghia: 7.9 cm/sec Med Peak E' Nghia: 6.7 cm/sec MV A max nghia: 88.0 cm/sec E/E' lat: 10.0 E/E' med: 11.8 MV E/A: 0.90 MV V2 max: 90.1 cm/sec Ao V2 max: 202.8 cm/sec MV max P.3 mmHg MV dec slope: 396.7 cm/sec2 Ao max P.5 mmHg MV V2 mean: 64.1 cm/sec Ao V2 mean: 147.0 cm/sec MV mean P.8 mmHg Ao mean P.8 mmHg MV V2 VTI: 30.4 cm Ao V2 VTI: 38.8 cm MVA(VTI): 2.2 cm2 ADIEL(I,D): 1.8 cm2 ADIEL(V,D): 1.6 cm2 LV V1 max: 117.0 cm/sec SV(LVOT): 68.0 ml PA V2 max: 118.5 cm/sec LV V1 max P.5 mmHg LV V1 mean P.3 mmHg LV V1 mean: 85.4 cm/sec LV V1 VTI: 25.1 cm ECHO/Echo Complete Interpretation Summary Left ventricular systolic function is normal. The estimated ejection fraction is 70 %. Post operative septal motion. Mid cavitary false tendon noted. Trivial mitral valve insufficiency. Trivial tricuspid valve insufficiency. Stable appearing bioprosthetic aortic valve apparatus. Trivial pulmonic valve insufficiency. Unable to estimate RV systolic pressure due to insufficient tricuspid regurgita nt envelope. No evidence for diastolic dysfunction. Ordering Physician: Issac Wyman Referring Physician: Issac Wyman Performed By: Jolene Gonzalez RCS
[2022-01-24 17:17] LABS: Anion Gap 8 (5-15); BUN 21 mg/dL (7-18); BUN/Creat Ratio 22.7 RATIO (10-20); Calcium,Total 9.7 mg/dL (8.5-10.1); Chloride 104 mmol/L (98-107); Creatinine, Serum 0.92 mg/dL (0.70-1.30); EST Glomerular Filtration Rate 85 mL/min (>60); Est Glom Filt Rate - Afr Amer 102 mL/min (>60); Glucose 41 mg/dL (74-106); Potassium 3.3 mmol/L (3.5-5.1); Sodium Level 142 mmol/L (136-145)
== END | disposition home or self-care (01) ==
PROVIDERS: PCP Family Medicine; Referring Provider Internal Medicine Cardiovascular Disease; Visit Provider Internal Medicine Cardiovascular Disease
DX: I25.10 Atherosclerotic heart disease of native coronary artery without angina pectoris (principal); Z95.3 Presence of xenogenic heart valve
CPT/HCPCS: 36415; 80048; 93306

== ENCOUNTER 2022-02-19 12:48 | Outpatient (RCR) | payer MEDICARE, OTHER, SELFPAY ==
[2022-01-15 09:10] VITALS: BMI 26.6
[2022-02-14 11:15] VITALS: BMI 27.5
== END 2022-02-21 23:59 ==
LOC: DC 12:48
PROVIDERS: PCP Family Medicine; Referring Provider Internal Medicine Cardiovascular Disease; Visit Provider Internal Medicine Cardiovascular Disease
DX: E11.9 Type 2 diabetes mellitus without complications (principal)
CPT/HCPCS: 93798; 97802

== ENCOUNTER → 2022-02-19 | Outpatient (CLI) | payer MEDICARE, OTHER, SELFPAY ==
[2022-02-14 11:15] VITALS: BMI 27.5
[2022-02-19 16:16] LABS: Anion Gap 5 (5-15); BUN 16 mg/dL (7-18); BUN/Creat Ratio 19.5 RATIO (10-20); Calcium,Total 9.8 mg/dL (8.5-10.1); Chloride 103 mmol/L (98-107); Creatinine, Serum 0.82 mg/dL (0.70-1.30); EST Glomerular Filtration Rate 97 mL/min (>60); Est Glom Filt Rate - Afr Amer 118 mL/min (>60); Glucose 66 mg/dL (74-106); Sodium Level 139 mmol/L (136-145)
== END | disposition home or self-care (01) ==
PROVIDERS: PCP Family Medicine; Visit Provider Internal Medicine Cardiovascular Disease
DX: E87.6 Hypokalemia (principal); E11.9 Type 2 diabetes mellitus without complications; I25.10 Atherosclerotic heart disease of native coronary artery without angina pectoris; Z95.1 Presence of aortocoronary bypass graft
CPT/HCPCS: 36415; 80048; 93798; 97802

== ENCOUNTER 2022-02-21 13:00 | Outpatient (RCR) | payer MEDICARE, OTHER, SELFPAY ==
[2022-01-15 09:10] VITALS: BMI 26.6
--- NOTE | 2022-02-14 11:00 | CR.ITP_ITS ---
Diagnosis Exercise - 30-day Assessment - Visit Date of Eval: 02/14/22 Session #:: 11 - Physician Prescribed Exercise Modalities: Treadmill, Airdyne, NuStep Frequency: 3x/week for 12 weeks [36 sessions] Intensity: 60-80% of age predicted maximum heart rate reserve Current METSs:: 3.5 Target Heart Rate:: 94-123 Current RPE:: 10-12 Maximum Excercise HR:: 115 Resting Blood Pressure: 124/60 Maximum Exercise Blood Pressure: 124/60 EKG Type: NSR to ST with rare PVC - Outcomes & Goals Goals:: Verbalizes understanding of THR, RPE & goal METS by session 6, Documents in home exercise log/reports 30 min aerobic 5 day/wk by DC, Demonstrates accurate pulse taking by DC, Other additional outcome/goals: see below - Intervention & Plan Exercise Program Goals: Instruct on personal THR & RPE, Instruct on MET level & personal MET goal, Show patient to take own pulse /validate performance until accurate, Instruct on home exercise, Other additional plan/int - 30-day Reassessments 30 day Reassessments:: Progressing - METS explained - Physical Activity Home Exercise Physical Activity - Home Exercise: Safe Exercise, Warm-up, Self-monitoring, Cool-Down, Home Exercise > 30 min Daily, Sitting Time <3 hours/daily - Outcomes & Goals Outcomes/Goals: Demonstrates correct Warm-up/exercise Cool-Down (S3) if = 2.5 METs, Verbalizes symptoms of exercise intolerance by Session 3 (S3), Demonstrate safe equipment use (S3) & follows exercise prescrition (6), Other: See below - Intervention & Plan Plan/Intervention: Instruct warm-up & cool-down if exercising at > 2 METs, Instruct on symptoms of exercise intolerance & actions to take, Instruct & monitor on saf, Assess intial functional capacity & safety risk, Other See below - 30-day Reassessments 30 day Reassessments:: Progressing - cool down encouraged Nutrition - Initial Assessment Nutrition - 30-Day Assessment - Visit Date of Assessment:: 02/14/22 Session #:: 11 - Cholesterol/Lipids (Other Core Measures) Determine presence & major risk factors that modify LDL goal: Hypertension or hypertensive medication, Low HDL cholesterol <40 mg/dL*, Family history of premature CHD in Male < 55 years: female <65 yearsFa, Age men > 45 years; women >/= 55 years Outcomes/Goals: Pt IDs own risk factors & lifestyle modifications by Session 10, Verbalizes symptoms of angina & response by session 3., Pt independently manages, Other Additional Outcomes/Goals: Intervention/Plan: Advocate for lipid panel cholesterol medication if applicable, Instruct on personal lipid levels & lipid goals/NCEP guidelines, Instruct on cholesterol, Other additional plan/int Referral to dietitian:: No - Diabetes (Other Core Measures) Diabetes Type: 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 Insulin dependent injection/pump?: Yes Non-Insulin Dependent?: Yes Do you monitor your blood sugar at home?: Yes Referral to Diabetic Clinic:: Yes Outcomes/Goals:: Able to state symptoms of, Able to state, Able to state, Other additional Intervention/Plan:: Instruct on, Refer to, Instruct on, Other 30-day Reassessments:: Progressing - encouraged to go to diabetic clinic - Weight Mgt (Other Care) Height: 5 ft 6 in Weight:: 77.337 kg BMI: 27.5 Diagnosis Overweight/Obesity BMI> 30% ICD-10 E66: No Diagnosis High BMI/Morbid Obesity BMI> 35% ICD-10 Z68: No Outcomes/Goals: Pt sets, maintains & shows weight loss goal & trend during rehab, Other additional outcomes/goals Intervention/Plan: Instruct on ideal BMI & set weight loss goal w/patient, Assist pt to ID & incorporate diet changes for weight loss by S9, Refer to Structured Weight Loss program as appropriate, Encourage goal of using 250- 300dcal per session for weight loss, Other additional plan/interventions 30 day Reassessments:: Progressing - encouraged to go to nutrition class - Healthy Eating Habits Will attend diet classes:: Yes Outcomes/Goals:: Consume diet rich in vegs,fruits,whole grain/high fiber,fish,lean meat, Limit sat/trans fats,cholesterol & added salts & sugars, Other additional outcome/goals: 30-day Reassessments:: Progressing - encouraged to go to nutrition class - Education Gave educational materials for:: Signs & symptoms of hypoglycemia, Signs & symptoms of hyperglycemia, Relate diabetes to coronary artery disease, Healthy eating Nutrition - 60-Day Assessment Nutrition - 90-Day Assessment Nutrition - Final Assessment Core - Initial Assessment Core - 30-Day Assessment - Visit Date of Eval: 02/14/22 Session #:: 11 - Medication Compliance Preventative Medication(s):: Aspirin, Statin/lipid, Beta shaggy H/O mental health issues: depression, anxiety, or addiction?: No Doesn?t believe in the benefits of treatment?: No Believes medications are unnecessary or harmful?: No Has a concern about medication side effects?: No Expresses concern over the cost of medications?: No Outcomes/Goals: Verbalizes medications,desired effect & common side effects @ DC, Pt self-reports following medication regimen, Keeps card in wallet w/medications listed by DC, Other additional outcome/goals: Interventions/plans: Instruct on medication effects & side effects, Review medication list w/patient every two weeks, Instruct importance of taking meds as ordered & assist problem solving, Other additional 30-day Reassessments:: Progressing - encouraged to take meds - Tobacco Use Tobacco Use: Non-smoker - Hypertension Hypertension Diagnosis:: Hypertension ICD-10 I10 Resting Blood Pressure:: 124/60 [place] [employer] Hypertension Guidelines: [place] [employer] Hypertension Guidelines. Normal BP Less than 120/80. Elevated BP 120/80. Hypertension Stage 1: BP 130-139/80-89. Hypertesnion Stage 2: BP 140 or higher/90 or higher. Hypertension Crisis: BP higher than 180/120 Peak Exercise Blood Pressure:: 124/60 Outcomes/Goals: Able to verbalize/achieve optimal blood pressure <130/80, Incorporates diet changes & exercise for blood pressure control by DC, Other additional outcomes/goals Interventions/plan: Instruct on optimal blood pressure, hypertension & medications, Instruct on effects of sodium, alcohol, stress, exercise &hypertension, Other additional plan/interventions 30 day Reassessments:: Progressing - Tobacco Cessation Referral Smoking Cessation Referral:: No Individual Education/Counseling:: No Core - 60-Day Assessment Core - 90 Day Assessment Core - Final Assessment Psychosocial - Initial Assess Psychosocial - 30-Day Assess - VIsit Date of Eval: 02/14/22 Session #:: 11 History of previous Mental disease:: No Psychosocial - 60-Day Assess Psychosocial - 90-Day Assess Psychosocial - Final Assessmen Patient Health Questionnaire 30-Day Re-eval Assessment 1. Little interest or pleasure in doing things: Not at all 2. Feeling down, depressed, or hopeless: Not at all 3. Trouble falling or staying asleep, or sleeping too much: Not at all 4. Feeling tired or having little energy: Several days 5. Poor appetite or overeating: Not at all 6. Feeling bad about yourself -- or that you are a failure or have let yourself or your family down: Not at all 7. Trouble concentrating on things, such as reading the newspaper or watching television: Not at all 8. Moving or speaking so slowly that other people could have noticed. Or the opposite - being so fidgety or restless that you have been moving around a lot more than usual: Not at all 9. Thoughts that you would be better off , or of hurting yourself in some way: Not at all How difficult have these problems made it for you to do your work, take care of things at home, or get along with other people?: Not difficult at all Total Score: 1 Self-Efficacy 30-Day Re-eval Assessment We would like to know how confident you are in doing certain activities. Please select your confidence level for:: Select your confidence level for the following using the scale 1-10 where 1 is not at all confident and 10 is totally confident. Your score is the average of all 6 responses. Fatigue: How confident are you that you can keep the fatigue caused by your disease from interfering with the things you want to do? Select Number: 6 Physical Discomfort or Pain: How confident are you that you can keep the physical discomfort or pain of your disease from interfering with the things you want to do? Select Number: 7 Emotional Distress: How confident are you that you can keep the emotional distress caused by your disease from interfering with the things you want to do? Select Number: 7 Other Symptoms or Health Problems: How confident are you that you can keep other symptoms or health problems from interfering with the things you want to do? Select Number: 5 Different Tasks and Activities: How confident are you that you can do the different tasks and activities needed to manage your health condition so as to reduce your need to see a doctor? Select Number: 7 Medication: How confident are you that you can do things other than just taking medication to reduce how much your illness affects your everyday life? Select Number: 7 Total Score:: 6 Nutrition Survey
[2022-02-14 11:15] VITALS: BP 124/60; BMI 27.5
== END 2022-02-21 23:59 ==
LOC: CR 13:00
PROVIDERS: PCP Family Medicine; Referring Provider Internal Medicine Cardiovascular Disease; Visit Provider Internal Medicine Cardiovascular Disease
DX: I25.10 Atherosclerotic heart disease of native coronary artery without angina pectoris (principal); Z95.3 Presence of xenogenic heart valve; Z95.1 Presence of aortocoronary bypass graft; E78.2 Mixed hyperlipidemia; I10 Essential (primary) hypertension
CPT/HCPCS: 93798

== ENCOUNTER → 2022-02-26 | Outpatient (CLI) | payer MEDICARE, OTHER, SELFPAY ==
[2022-02-14 11:15] VITALS: BMI 27.5
--- NOTE | 2022-02-25 | FLU_PTH ---
PATIENT: DORIS CARL [facility]: [facility] U#:[id number] AGE/SX: 76/M ROOM: RE02/26/[address]: Dr. Darryn Alamo MD : [id number] BED: DIS: 02/26/2022 SPEC #: [id number] RECD: 02/26/22 12:18 STATUS: BRENDA LAURA #: [id number] LORENZO: 02/25/22 00:[address]: Darryn Alamo DEPT: CYTOLOGY RECD BY: Elysas Taylor ENTERED: 02/26/22 13:26 SP TYPE: Fluid OTHR DR: Dr. Steffen Triplett MD Tissues: A - Thyroid gland, NOS B - Thyroid gland, NOS Procedures: Special Stain Group II Surgery Specimen Level IV Cytospin Fluid Cytology Other HEADER OPERATION: Fine needle aspiration, right thyroid PRE-OP DIAGNOSIS: Abnormal ultrasound TISSUE SUBMITTED: A ? FNA right thyroid fluid, B - FNA right thyroid x12 slides DIAGNOSIS CYTOLOGY A. Right thyroid fluid, fine needle aspiration (cytospin and cell block): Negative for malignant cells. See comment. B. Right thyroid, fine needle aspiration (smears): Consistent with benign follicular/colloid nodule ([place] Category II). Adequate for evaluation. See comment. SJ:rg 02/27/2022 COMMENT A. A few clusters of benign follicular cells are noted. Correlation with clinical, radiologic findings and appropriate follow up are necessary. CYTOLOGY STUDY Slides are reviewed. CYTOLOGY GROSS A - Received is 20 ml of brown cloudy fluid labeled with the patient's name and and designated per the requisition as right thyroid. Submitted for cytology preparation including cell block. B - Received are 12 smears labeled with the patient's name and designated per the requisition as right thyroid. Submitted for staining. / belen 02/26/2022 TC:5 CPT: 85913 x2, [id number]
== END | disposition home or self-care (01) ==
LOC: LABSPEC 13:00
PROVIDERS: PCP Family Medicine; Visit Provider Surgery
DX: R94.6 Abnormal results of thyroid function studies (principal)
CPT/HCPCS: 88108; 88161; 88305; 88313

== ENCOUNTER 2022-03-19 12:55 | Outpatient (RCR) | payer MEDICARE, OTHER, SELFPAY ==
[2022-02-14 11:15] VITALS: BMI 27.5
[2022-03-17 09:20] VITALS: BMI 27.4
== END 2022-03-24 23:59 ==
LOC: DC 12:55
PROVIDERS: PCP Family Medicine; Referring Provider Internal Medicine Cardiovascular Disease; Visit Provider Internal Medicine Cardiovascular Disease
DX: E11.9 Type 2 diabetes mellitus without complications (principal); I25.10 Atherosclerotic heart disease of native coronary artery without angina pectoris; Z95.1 Presence of aortocoronary bypass graft; Z95.3 Presence of xenogenic heart valve; E78.2 Mixed hyperlipidemia; I10 Essential (primary) hypertension
CPT/HCPCS: 93798; 97803

== ENCOUNTER 2022-03-24 13:00 | Outpatient (RCR) | payer MEDICARE, OTHER, SELFPAY ==
[2022-02-14 11:15] VITALS: BMI 27.5
[2022-02-22 01:41] VITALS: BP 124/60
--- NOTE | 2022-03-17 09:12 | PCM.CR.ITP ---
Diagnosis Exercise - 60-day Assessment - Visit Date of Eval: 03/17/22 Session #:: 24 - Physician Prescribed Exercise Modalities: Treadmill, Airdyne, NuStep Frequency: 3x/week for 12 weeks [36 sessions] Intensity: 60-80% of age predicted maximum heart rate reserve Duration: 30 - 45 minutes Current METSs:: 5.5 Target RPE 12-16:: 94-123 Current RPE:: 12-14 Maximum Excercise HR:: 136 Resting Blood Pressure: 128/62 Maximum Exercise Blood Pressure: 148/90 EKG Type: NSR to ST with occasional PVCs Current Physical Activity or Exercising minutes: Sits < 3 hours daily - Outcomes & Goals Goals:: Verbalizes understanding of THR, RPE & goal METS by session 6, Documents in home exercise log/reports 30 min aerobic 5 day/wk by DC, Demonstrates accurate pulse taking by DC - Intervention & Plan Exercise Program Goals: Instruct on personal THR & RPE, Instruct on MET level & personal MET goal, Show patient to take own pulse /validate performance until accurate, Instruct on home exercise - 30-day Reassessments 30 day Reassessments:: Met - Physical Activity Home Exercise Physical Activity - Home Exercise: Safe Exercise, Warm-up, Self-monitoring, Cool-Down, Home Exercise > 30 min Daily, Sitting Time <3 hours/daily - Outcomes & Goals Outcomes/Goals: Demonstrates correct Warm-up/exercise Cool-Down (S3) if = 2.5 METs, Verbalizes symptoms of exercise intolerance by Session 3 (S3), Demonstrate safe equipment use (S3) & follows exercise prescrition (6) - Intervention & Plan Plan/Intervention: Instruct warm-up & cool-down if exercising at > 2 METs, Instruct on symptoms of exercise intolerance & actions to take, Instruct & monitor on saf, Assess intial functional capacity & safety risk - 30-day Reassessments 30 day Reassessments:: Met Nutrition - Initial Assessment Nutrition - 30-Day Assessment Nutrition - 60-Day Assessment - Program Goals Nutrition Program Goals: LDL <100 optimal. 100 - 129 Near optimal. 130 - 159 Borderline High. 160 - 189 High. Total Cholesterol <200 desirable. 200 - 239 Borderline High. >/= 240 High. HDL < 40 Low >/=60 High. Triglycerides <150 desirable. <199 optimal. VlDL 5 - 40. HgbA1C <7%. BMI <25 Patient has diagnosis of Hyperlipidemia (ICD E78)?: Yes - Visit Date of Assessment:: 03/17/22 Session #:: 24 - No recent lab since 2012 - Cholesterol/Lipids (Other Core Measures) Determine presence & major risk factors that modify LDL goal: Hypertension or hypertensive medication, Family history of premature CHD in Male < 55 years: female <65 yearsFa, Age men > 45 years; women >/= 55 years Outcomes/Goals: Pt IDs own risk factors & lifestyle modifications by Session 10, Verbalizes symptoms of angina & response by session 3., Pt independently manages Intervention/Plan: Instruct on personal lipid levels & lipid goals/NCEP guidelines, Instruct on cholesterol Referral to dietitian:: No - Met with Nutritional Services on 02/19/2022 30-day Reassessments:: Progressing - Diabetes (Other Core Measures) Diabetes Type: 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 Insulin dependent injection/pump?: Yes Non-Insulin Dependent?: Yes Do you monitor your blood sugar at home?: Yes Referral to Diabetic Clinic:: No Outcomes/Goals:: Able to state symptoms of, Able to state, Able to state Intervention/Plan:: Instruct on, Instruct on 30-day Reassessments:: Met - Weight Mgt (Other Care) Not Applicable: Yes Height: 5 ft 6 in Weight:: 170 lb BMI: 27.4 Diagnosis Overweight/Obesity BMI> 30% ICD-10 E66: No Diagnosis High BMI/Morbid Obesity BMI> 35% ICD-10 Z68: No Outcomes/Goals: Pt sets, maintains & shows weight loss goal & trend during rehab Intervention/Plan: Instruct on ideal BMI & set weight loss goal w/patient, Assist pt to ID & incorporate diet changes for weight loss by S9, Encourage goal of using 250-300dcal per session for weight loss 30 day Reassessments:: Progressing - Healthy Eating Habits Will attend diet classes:: Yes Outcomes/Goals:: Consume diet rich in vegs,fruits,whole grain/high fiber,fish,lean meat, Limit sat/trans fats,cholesterol & added salts & sugars Intervention/Plan:: Assess current eating habits 30-day Reassessments:: Progressing - Education Gave educational materials for:: Healthy eating Nutrition - 90-Day Assessment Nutrition - Final Assessment Core - Initial Assessment Core - 30-Day Assessment Core - 60-Day Assessment - Visit Date of Eval: 03/17/22 Session #:: 24 - Medication Compliance Preventative Medication(s):: Aspirin, Statin/lipid, Beta shaggy H/O mental health issues: depression, anxiety, or addiction?: No Doesn?t believe in the benefits of treatment?: No Believes medications are unnecessary or harmful?: No Has a concern about medication side effects?: No Expresses concern over the cost of medications?: No Outcomes/Goals: Verbalizes medications,desired effect & common side effects @ DC, Pt self-reports following medication regimen, Keeps card in wallet w/medications listed by DC Interventions/plans: Instruct on medication effects & side effects, Review medication list w/patient every two weeks, Instruct importance of taking meds as ordered & assist problem solving 30-day Reassessments:: Progressing - Tobacco Use Tobacco Use: Non-smoker - Hypertension Hypertension Diagnosis:: Hypertension ICD-10 I10 Resting Blood Pressure:: 128/62 [place] [employer] Hypertension Guidelines: [place] [employer] Hypertension Guidelines. Normal BP Less than 120/80. Elevated BP 120/80. Hypertension Stage 1: BP 130-139/80-89. Hypertesnion Stage 2: BP 140 or higher/90 or higher. Hypertension Crisis: BP higher than 180/120 Peak Exercise Blood Pressure:: 148/90 Outcomes/Goals: Able to verbalize/achieve optimal blood pressure <130/80, Incorporates diet changes & exercise for blood pressure control by DC Interventions/plan: Instruct on optimal blood pressure, hypertension & medications, Instruct on effects of sodium, alcohol, stress, exercise &hypertension 30 day Reassessments:: Progressing - Tobacco Cessation Referral Smoking Cessation Referral:: No Individual Education/Counseling:: No Education Schedule Given:: Yes Core - 90 Day Assessment Core - Final Assessment Psychosocial - Initial Assess Psychosocial - 30-Day Assess Psychosocial - 60-Day Assess - VIsit Date of Eval: 03/17/22 Session #:: 24 Not Applicable: Yes History of previous Mental disease:: No - Psychosocial Test Tool Used:: PHQ-9 Questionnaire phq-9 Severity: Severity. 1-4 Minimal Depression. 5-9 Mild Depression. 10-14 Moderate Depression. 15-19 Moderately Sever Depression. 20-27 Severe Depression. Rule: - Referral to Behavioral Health PS - Interventions: Yes Attend Stress Management Classes, No Referral to Behavioral Health if PHQ-9 score >9:, No Referral to [facility], No Referral to Physician if PHQ-9 if score is 5-9: - Outcomes/Goals: See list Psychosocial Outcomes/Goals:: ID's personal stressors & 2 strategies to manage stress by discharge - Intervention/Plan: See List Interventions/Plan:: Assess stressors,coping strategies & signs of derpression on admission, Instruct/assist pt to develop coping & personal stress Mgt strategies, Instruct patient to recognize signs & symptoms of depression, Instruct patient to recog - 30-day Reassessments: 30 day Reassessments:: Progressing Psychosocial - 90-Day Assess Psychosocial - Final Assessmen Patient Health Questionnaire 60-Day Re-eval Assessment 1. Little interest or pleasure in doing things: Not at all 2. Feeling down, depressed, or hopeless: Not at all 3. Trouble falling or staying asleep, or sleeping too much: Not at all 4. Feeling tired or having little energy: Not at all 5. Poor appetite or overeating: Not at all 6. Feeling bad about yourself -- or that you are a failure or have let yourself or your family down: Not at all 7. Trouble concentrating on things, such as reading the newspaper or watching television: Not at all 8. Moving or speaking so slowly that other people could have noticed. Or the opposite - being so fidgety or restless that you have been moving around a lot more than usual: Not at all 9. Thoughts that you would be better off , or of hurting yourself in some way: Not at all How difficult have these problems made it for you to do your work, take care of things at home, or get along with other people?: Not difficult at all Total Score: 0 Self-Efficacy 60-Day Re-eval Assessment We would like to know how confident you are in doing certain activities. Please select your confidence level for:: Select your confidence level for the following using the scale 1-10 where 1 is not at all confident and 10 is totally confident. Your score is the average of all 6 responses. Fatigue: How confident are you that you can keep the fatigue caused by your disease from interfering with the things you want to do? Select Number: 8 Physical Discomfort or Pain: How confident are you that you can keep the physical discomfort or pain of your disease from interfering with the things you want to do? Select Number: 9 Emotional Distress: How confident are you that you can keep the emotional distress caused by your disease from interfering with the things you want to do? Select Number: 9 Other Symptoms or Health Problems: How confident are you that you can keep other symptoms or health problems from interfering with the things you want to do? Select Number: 7 Different Tasks and Activities: How confident are you that you can do the different tasks and activities needed to manage your health condition so as to reduce your need to see a doctor? Select Number: 9 Medication: How confident are you that you can do things other than just taking medication to reduce how much your illness affects your everyday life? Select Number: 10 Total Score:: 8 Nutrition Survey
[2022-03-17 09:20] VITALS: BP 128/62; BP 148/90; BMI 27.4
== END 2022-03-24 23:59 ==
LOC: CR 13:00
PROVIDERS: PCP Family Medicine; Referring Provider Internal Medicine Cardiovascular Disease; Visit Provider Internal Medicine Cardiovascular Disease
DX: I25.10 Atherosclerotic heart disease of native coronary artery without angina pectoris (principal); Z95.3 Presence of xenogenic heart valve; Z95.1 Presence of aortocoronary bypass graft; E78.2 Mixed hyperlipidemia; I10 Essential (primary) hypertension
CPT/HCPCS: 93798

== ENCOUNTER 2022-04-11 13:00 | Outpatient (RCR) | payer MEDICARE, OTHER, SELFPAY ==
[2022-03-17 09:20] VITALS: BMI 27.4
[2022-03-25 00:34] VITALS: BP 128/62; BP 148/90
== END 2022-04-23 23:59 ==
LOC: CR 13:00
PROVIDERS: PCP Family Medicine; Referring Provider Internal Medicine Cardiovascular Disease; Visit Provider Internal Medicine Cardiovascular Disease
DX: I25.10 Atherosclerotic heart disease of native coronary artery without angina pectoris (principal); Z95.3 Presence of xenogenic heart valve; Z95.1 Presence of aortocoronary bypass graft; E78.2 Mixed hyperlipidemia; I10 Essential (primary) hypertension
CPT/HCPCS: 93798

== ENCOUNTER 2022-04-23 16:21 | Outpatient (CLI) | payer MEDICARE, OTHER, SELFPAY ==
[2022-03-17 09:20] VITALS: BMI 27.4
[2022-04-23 17:50] LABS: Anion Gap 7 (5-15); BUN 22 mg/dL (7-18); BUN/Creat Ratio 25.1 RATIO (10-20); Calcium,Total 9.7 mg/dL (8.5-10.1); Chloride 98 mmol/L (98-107); Creatinine, Serum 0.88 mg/dL (0.70-1.30); EST Glomerular Filtration Rate 90 mL/min (>60); Est Glom Filt Rate - Afr Amer 109 mL/min (>60); Glucose 188 mg/dL (74-106); Potassium 3.7 mmol/L (3.5-5.1); Sodium Level 135 mmol/L (136-145)
== END 2022-04-23 23:59 | disposition home or self-care (01) ==
LOC: LAB 16:23
PROVIDERS: PCP Family Medicine; Visit Provider Nurse Practitioner Gerontology
DX: I10 Essential (primary) hypertension (principal)
CPT/HCPCS: 36415; 80048

== ENCOUNTER → 2023-02-26 | Outpatient (CLI) | payer MEDICARE, OTHER, SELFPAY ==
[2022-03-17 09:20] VITALS: BMI 27.4
--- NOTE | 2023-02-26 07:54 | ECHOD_ITS ---
Version 2 Reason For Study: VALVE REPLACEMENT EVAL Procedure This was a 2D Doppler, Color Flow transthoracic echocardiogram. Exam performed in department. Left Ventricle Normal LV size. Mild concentric left ventricular hypertrophy. Left ventricular systolic function is normal. The estimated ejection fraction is 60 %. No regional wall motion abnormalities noted. Right Ventricle Normal RV size. Normal systolic function. Atria The left atrium is mildly enlarged. Normal right atrium. Mitral Valve Bileaflet diffuse mitral valve thickening. Mild (1+) eccentric mitral valve insufficiency. Tricuspid Valve Normal tricuspid valve. Mild tricuspid valve insufficiency. Aortic Valve Peak aortic valve gradient 14 mmHg. Mean aortic valve gradient 7.7 mmHg. Bioprosthetic aortic valve. Great Vessels Normal aortic root. The pulmonary artery is normal size. Normal inferior vena cava. Pericardium/Pleural No pericardial effusion. MMode/2D Measurements & Calculations LVIDd: 4.5 cm IVSd: 1.2 cm LVOT diam: 2.0 cm LVIDs: 3.1 cm LVPWd: 1.3 cm LVOT area: 3.1 cm2 RVDd: 3.0 cm FS: 30.4 % Ao root diam: 3.3 cm LAV(MOD-bp): 76.5 ml LVAd ap4: 37.1 cm2 LAV(MOD-bp) Indexed: 41.3 ml/m2 LVLd ap4: 9.0 cm LAV(MOD-sp2): 69.9 ml EDV(MOD-sp4): 126.6 ml LAV(MOD-sp4): 79.8 ml EDV(sp4-el): 130.2 ml LVAs ap4: 21.9 cm2 LVLs ap4: 7.8 cm ESV(MOD-sp4): 53.0 ml ESV(sp4-el): 52.1 ml EF(MOD-sp4): 58.1 % EF(sp4-el): 60.0 % SV(MOD-sp4): 73.6 ml SV(MOD-sp2): 57.3 ml LVAd ap2: 29.2 cm2 LVLd ap2: 8.3 cm EDV(MOD-sp2): 88.3 ml EDV(sp2-el): 86.7 ml LVAs ap2: 16.3 cm2 LVLs ap2: 7.4 cm ESV(MOD-sp2): 31.0 ml ESV(sp2-el): 30.7 ml EF(MOD-sp2): 64.9 % SV(sp4-el): 78.2 ml LA A4 area: 23.9 cm2 LA dimension(2D): 4.2 cm TAPSE: 1.3 cm RA A4 area: 12.8 cm2 Time Measurements MV dec time: 0.19 sec Doppler Measurements & Calculations MV E max nghia: 109.2 cm/sec Lat Peak E' Nghia: 9.5 cm/sec Med Peak E' Nghia: 5.1 cm/sec MV A max nghia: 51.5 cm/sec E/E' lat: 11.4 E/E' med: 21.4 MV E/A: 2.1 MV dec slope: 561.0 cm/sec2 Ao V2 max: 191.7 cm/sec LV V1 max: 101.6 cm/sec Ao max P.8 mmHg LV V1 max P.1 mmHg Ao V2 mean: 128.4 cm/sec LV V1 mean P.2 mmHg Ao mean P.7 mmHg LV V1 mean: 70.3 cm/sec Ao V2 VTI: 44.0 cm LV V1 VTI: 23.8 cm AV (velocity ratio): 0.54 ADIEL(I,D): 1.7 cm2 ADIEL(V,D): 1.7 cm2 MR max nghia: 518.8 cm/sec SV(LVOT): 74.9 ml PA V2 max: 89.9 cm/sec MR max P.7 mmHg PA V2 mean: 67.4 cm/sec MR mean nghia: 413.5 cm/sec MR mean P.5 mmHg MR VTI: 201.0 cm TR max nghia: 195.5 cm/sec TR max P.3 mmHg ECHO/Echo Complete Interpretation Summary Normal LV size. Mild concentric left ventricular hypertrophy. Left ventricular systolic function is normal. The estimated ejection fraction is 60 %. Mild tricuspid valve insufficiency. Bioprosthetic aortic valve. Ordering Physician: Hayde Thompson Referring Physician: Steffen Triplett Performed By: Susan Palmer RDCS, RVT
== END | disposition home or self-care (01) ==
PROVIDERS: PCP Family Medicine; Referring Provider Physician Assistant Medical; Visit Provider Physician Assistant Medical
DX: I25.10 Atherosclerotic heart disease of native coronary artery without angina pectoris (principal); Z95.3 Presence of xenogenic heart valve
CPT/HCPCS: 93306

== ENCOUNTER → 2024-04-04 | Outpatient (CLI) | payer MEDICARE, OTHER, SELFPAY ==
[2022-03-17 09:20] VITALS: BMI 27.4
== END | disposition home or self-care (01) ==
LOC: CVS 14:27
PROVIDERS: PCP Family Medicine; Referring Provider Nurse Practitioner Gerontology; Visit Provider Nurse Practitioner Gerontology
DX: Z95.3 Presence of xenogenic heart valve (principal)
CPT/HCPCS: 93306